=== PATIENT | female | born 1985 | race Caucasian/White ===

== ENCOUNTER → 2021-01-27 | Outpatient (REF) | payer BC | LOC: M SFHCWAGY 16:43 | PROVIDERS: ATTEND Advanced Practice Midwife | DX: Z36.89 Encounter for other specified antenatal screening (principal); Z3A.36 36 weeks gestation of pregnancy ==

== ENCOUNTER 2021-02-21 05:58 | Inpatient (IN) | payer BC ==
[~2021-02-21] VITALS: Ht 160 cm; Wt 74.8 kg
[2021-02-21] VITALS (40 sets, daily range): BP systolic 93–143; BP diastolic 53–95
[2021-02-21] MEDS ORDERED: PRENTAB9 PO (06:20)
[2021-02-21] MEDS ORDERED: TUMS500C PO (06:20)
[2021-02-21] MEDS ORDERED: HOME MED LIST COMPLETE! XX SCH (06:25)
[2021-02-21 07:08] LABS: HEMATOCRIT 39.6 % (36.0-47.0); HEMOGLOBIN 13.4 g/dl (12.0-15.5); MEAN CORPUSCULAR HEMOGLOBIN 28.5 pg (27.0-33.0); MEAN CORPUSCULAR HGB CONC 33.8 g/dl (32.0-36.5); MEAN CORPUSCULAR VOLUME 84.3 fl (80.0-96.0); PLATELET COUNT, AUTOMATED 197 10^3/uL (150-450); WHITE BLOOD COUNT 6.5 10^3/uL (4.0-10.0)
[2021-02-21] MEDS ORDERED: LACTATED RINGER'S 1000 ML IV STA (08:43)
[2021-02-21] MEDS ORDERED: CARBOPROST TROMETHAMINE 250 MCG/ML AMP IM PRN (08:45)
[2021-02-21] MEDS ORDERED: LIDOCAINE 1% MDV 20ML VIAL INFIL PRN (08:45)
[2021-02-21] MEDS ORDERED: METHYLERGONOVINE MALEATE 0.2 MG/ML VIAL (J2210) IM PRN (08:45)
[2021-02-21] MEDS ORDERED: OXYTOCIN DRIP 30 UNITS in IV 1 EA IV PRN (08:45)
[2021-02-21] MEDS ORDERED: TRANEXAMIC ACID INJection 1,000 MG in NS 100 ML IV PRN (08:45)
--- NOTE | 2021-02-21 09:00 | HPEPDOC ---
Obstetrical History & Physical General Date of Admission Feb 21, 2021 at 07:04 Primary Care Physician: ABIEL VALENTIN CNM History of Present Illness Hanh is a 36-year-old female who is a at 40.1 weeks gestation with an EVON of 02/20/21 based off of her LMP and consistent with her first trimester ultra sound. She initiated care in her first trimester of with [facility] and transferred care to [facility] in her third trimester of .Her has been complicated by advanced maternal age. She presents to labor and delivery with complaints of leaking of fluid at 0430 on 02/20/21. She reports active movements. She denies contractions or vaginal bleeding. Chief Complaint: Rupture of membranes Information Provided By: Patient Age: 36 : 1 Term: 0 Pre-term: 0 Abortions: 0 Livin Care Care: Good Care Dating Final EDC: Feb 20, 2021 Final EDC by: LMP EGA at Admission: 40.1 Antepartum Course Diagnos(e)s Advanced maternal age. Height (inches): 63 Pre- weight (lbs.): 142 Admission Weight (lbs.): 164 Change in Weight (lbs.): 22 Past Medical History [employer] History: No pertinent history Past Medical History Medical History Alergic rhinitis Surgical History: Appendectomy, Other (surgery on both legs) Family History Significant Family History: Other (Situs Inversus) Social History Social history speech therapist. Marital Status: Family situation: Spouse/partner home Psychosocial History: No pertinent psych hx * Smoker: non-smoker Alcohol: Denies Drugs: denies Abuse Violence Screening Have you been hit/kicked/slapp: No Have you been sexually assault: No Imunizations Tdap status: current Allergies Coded Allergies: No Known Allergies (Unverified , 02/21/21) Physical Examination Physical Examination GENERAL: Alert and oriented times three. ABDOMEN: Gravid and non-tender to touch. FETUS: Is vertex (VTX) by sterile vaginal examination (SVE), fetus is vertex (VTX) by Rohith. LUNGS: Regular rate without use of accessory muscles. EXTREMITIES: No edema. No clonus. . Vital Signs/I&O Vital Signs Date Time Temp Pulse Resp B/P (MAP) Pulse Ox O2 Delivery O2 Flow Rate FiO2 02/21/21 06:19 97.2 63 18 114/81 (92) Laboratory Data 24H LABS Laboratory Tests 2 02/21/21 06:31: Nucleated Red Blood Cells % (auto) 0.0 CBC/BMP Laboratory Tests 02/21/21 06:31 Pertinent Laboratoy Data Blood Type: A+ RBC Antibody Screen: Negative HIV: Negative Hepatitis B: Negative Hepatitis C: Negative Rapid Plasma Reagin: Nonreactive Rubella: Immune Varicella: Immune Chlamydia/Gonorrhea: Negative Group B Streptococcus: Negative Glucose Tolerance Test: 152 Diag/Inter Therapy Normal 3 hour GTT Low risk NIPT Vaginal Examination Dilation: 1cm Effacement: other (75%) Station: -2 Cervical Consistency: Medium Cervical Position: Middle Presentation: Cephalic presentation Assessment Heart Rate (FHR): 135 Variability: Moderate Accelerations: Positive Decelerations: None Tocometer Contractions: Yes Frequency: irregular Assessment/Plan Assessment IUP at 40.1 weeks gestation SROM meconium GBS negative Category I FHR tracing Plan Admit to labor and delivery. OOB ad parisa. Diet: regular. Group B Streptococcus (GBS) negative. Labs and intravenous (IV) per unit protocol. Counseled on Cytotec and IV Pitocin for induction of labor (IOL). Cytotec to be started. Anesthesia consult per patient's request. Lactated Ringers (LR): Bolus 800 mL prior to epidural, then at 125 mL/hr. Anticipate cervical ripening. C-S as appropriate. ABIEL VALENTIN CNM Feb 21, 2021 09:00
[2021-02-21] MEDS: miSOPROStol 50MCG 1/2 TABLET PO SCH ×2 (09:27→13:00)
[2021-02-21] MEDS ORDERED: FENTANYL 2MCG/ML ROPIVACAINE 0.2% IN 0.9% NACL 100ML IVBAG As Ordered ONE (12:42)
[2021-02-21] MEDS: LR 1,000 ML IV SCH ×2 (13:40→19:44)
[2021-02-21] MEDS ORDERED: OXYTOCIN DRIP 30 UNITS in IV 1 EA IV SCH (19:00)
--- NOTE | 2021-02-21 19:00 | IPNPDOC ---
Obstetrical Progress Note Date of Service Feb 21, 2021 Subjective Patient reports she is comfortable with her epidural. Objective Vital Signs Date Time Temp Pulse Resp B/P (MAP) Pulse Ox O2 Delivery O2 Flow Rate FiO2 02/21/21 18:21 70 16 109/57 (74) 02/21/21 06:19 97.2 Assessment Heart Rate (FHR): 130 Variability: Moderate Accelerations: Positive Decelerations: None Heart Rate Tracing: Category I Tocometer Contractions: Yes Frequency: regular, every 2-5 min. Sterile Vaginal Examination Dilation: 4 cm Effacement (%): 80% Station: -1 Cervical Consistency: Soft Cervical Position: Anterior Postion/Presentation: Cephalic presentation Assessment and Plan Age: 36 Status: Reassuring Group B Streptococcus: Negative Anticipate: Vaginal Delivery Additional Comments IV Pitocin to be started after counseling patient. ABIEL VALENTIN CNM Feb 21, 2021 19:00
[2021-02-21] MEDS ORDERED: ePHEDrine SULFATE 25 MG/5 ML(5MG/ML) SYRINGE IV PRN (19:15)
[2021-02-21] MEDS ORDERED: NALOXONE INJ 0.4MG/1ML VIAL (J2310 PER 1MG) IV PRN (19:15)
[2021-02-21] MEDS ORDERED: EPIDURAL COMMENT XX SCH (19:15)
[2021-02-21] MEDS ORDERED: EPIDURAL/PCA KEYS XX PRN (19:15)
[2021-02-21] MEDS ORDERED: ONDANSETRON 4MG/2ML VIAL IV PRN (19:15)
[2021-02-21] MEDS ORDERED: LACTATED RINGER'S 1000 ML IV PRN (19:15)
[2021-02-21] MEDS ORDERED: diphenhydrAMINE 50MG/ML VIAL (J1200) IV PRN (19:15)
[2021-02-21] MEDS ORDERED: REFRIGERATOR IV KEYS XX PRN (19:15)
[2021-02-21] MEDS: FENTANYL/ROPIVACAINE/NACL BAG 100 ML EPIDURAL SCH (20:21)
--- NOTE | 2021-02-21 23:45 | IPNPDOC ---
Obstetrical Progress Note Date of Service Feb 21, 2021 Subjective Patient uncomfortable in left upper quadrant. Not feeling pressure. Sitting up in bed. Has epidural. Objective Vital Signs Date Time Temp Pulse Resp B/P (MAP) Pulse Ox O2 Delivery O2 Flow Rate FiO2 02/21/21 21:46 97.4 57 119/72 (88) 02/21/21 19:44 17 Assessment Heart Rate (FHR): 140 Variability: Moderate Accelerations: Positive Decelerations: None Heart Rate Tracing: Category I Tocometer Contractions: Yes Frequency: every 1-3 min. Sterile Vaginal Examination Dilation: 5 cm Effacement (%): 80% Station: 0 Cervical Consistency: Soft Cervical Position: Anterior Postion/Presentation: Cephalic presentation Assessment and Plan Age: 36 : 1 Weeks & Days 40.1 Status: Reassuring Group B Streptococcus: Negative Anticipate: Vaginal Delivery Additional Comments IV Pitocin at 6 mu/min. Patient reclined on her back and she reports pain has improved with position change. Given epidural for bolus if needed. ABIEL VALENTIN CNM Feb 21, 2021 23:45
[2021-02-22] VITALS (33 sets, daily range): BP systolic 103–133; BP diastolic 54–88
[2021-02-22] MEDS ORDERED: METOCLOPRAMIDE INJ 10MG/2ML VIAL (J2765 PER 1) IV ONE (00:05)
[2021-02-22] MEDS: FENTANYL/ROPIVACAINE/NACL BAG 100 ML EPIDURAL SCH (02:46)
[2021-02-22] MEDS ORDERED: AZITHROMYCIN INJ 500 MG, VIAL MATE ADAPTER 1 EACH in NS 250 ML IV ONE (04:00)
[2021-02-22] MEDS ORDERED: ceFAZolin SOD 2 GM in IV 1 EA IV ONE (04:00)
[2021-02-22] MEDS ORDERED: BICITRA 30ML SOLN UDC PO ONE (04:00)
[2021-02-22] MEDS ORDERED: LR 1,000 ML IV SCH (04:00)
--- NOTE | 2021-02-22 04:01 | IPNPDOC ---
Obstetrical Progress Note Date of Service Feb 22, 2021 Subjective Patient reports feeling rectal pressure. Objective Vital Signs Date Time Temp Pulse Resp B/P (MAP) Pulse Ox O2 Delivery O2 Flow Rate FiO2 02/22/21 01:27 66 18 109/61 (77) 02/22/21 01:04 98.6 Assessment Heart Rate (FHR): 140 Variability: Moderate Accelerations: Positive Decelerations: None Heart Rate Tracing: Category I Tocometer Contractions: Yes Frequency: regular Sterile Vaginal Examination Dilation: 5 cm Effacement (%): 50% Station: 0 Cervical Consistency: Firm Postion/Presentation: Cephalic presentation Assessment and Plan Age: 36 : 1 Term: 0 Pre-term: 0 Abortions: 0 Livin EGA at Admission: 40.1 Weeks & Days 40.2 today Status: Reassuring Anticipate: Section Additional Comments cervix is very swollen. head lifted and a large amount of dark brown meconium was released from the uterus. Given that patient has not made any cervical change and her cervix is very swollen despite multiple hours of IV Pitocin and multiple position changes, I recommend a section. Dr. Haylee oro notified and will be in to evaluate patient. ABIEL VALENTIN CNM Feb 22, 2021 04:01
[2021-02-22] MEDS ORDERED: ONDANSETRON 4MG/2ML VIAL As Ordered ONE (04:58)
[2021-02-22] MEDS ORDERED: dexameTHASONE 4 MG/ML 1ML VIAL (J1100 PER 1MG) As Ordered ONE (04:58)
[2021-02-22] MEDS ORDERED: MORPHINE PRES-FREE INJ 10 MG/10 ML VIAL (J2274) As Ordered ONE (04:58)
[2021-02-22] MEDS ORDERED: SODIUM BICARBONATE 8.4% INJ 50MEQ 50 ML VIAL As Ordered ONE (04:58)
[2021-02-22] MEDS ORDERED: LIDOCAINE 2% W/EPINEPHRINE 20ML VIAL **PRES FREE As Ordered ONE (04:58)
[2021-02-22] MEDS ORDERED: KETOROLAC 60MG 2ML VIAL As Ordered ONE (04:58)
[2021-02-22] MEDS ORDERED: OXYTOCIN 30 UNITS IN 0.9% NaCl 500ML IV BAG (J2590) As Ordered ONE (04:58)
[2021-02-22] MEDS ORDERED: ACETAMINOPHEN 1000MG 100ML IV BTL (OFIRMEV) (J0131 PER 10MG) As Ordered ONE (04:59)
[2021-02-22] MEDS ORDERED: ONDANSETRON 4MG/2ML VIAL IV PRN ×2 (05:03→05:55)
[2021-02-22] MEDS ORDERED: METOCLOPRAMIDE INJ 10MG/2ML VIAL (J2765 PER 1) IV PRN (05:03)
[2021-02-22] MEDS ORDERED: NALOXONE INJ 0.4MG/1ML VIAL (J2310 PER 1MG) IV PRN ×2 (05:03)
[2021-02-22] MEDS ORDERED: NALBUPHINE HCL 10 MG/ML AMP (J2300) IV PRN (05:03)
[2021-02-22] MEDS ORDERED: diphenhydrAMINE 50MG/ML VIAL (J1200) IV PRN (05:03)
[2021-02-22 05:17] LABS: CORD GAS ABE A -8.4; CORD GAS ABE V -5.9; CORD GAS HCO3 A 18.6 MEQ/L; CORD GAS HCO3 V 20.2 MEQ/L; CORD GAS O2 SAT A 74.1 %; CORD GAS PCO2 A 43.3 mmHg; CORD GAS PCO2 V 41.8 mmHg; CORD GAS PH A 7.25 UNITS; CORD GAS PH V 7.301 UNITS; CORD GAS PO2 A 36.2 mmHg; CORD GAS PO2 V 38.9 mmHg; CORD GAS SBC A 17.3 MEQ/L; CORD GAS SBC V 19.2 MEQ/L; CORD GAS TCO2 A 19.9 MEQ/L; CORD GAS TCO2 V 21.4 MEQ/L
[2021-02-22] MEDS ORDERED: MEASLES,MUMPS,RUBELLA VACCINE INJ (MMR-II) (90707) SC SCH (05:35)
[2021-02-22] MEDS ORDERED: MOM 30ML SUSPENSION UDC PO PRN (05:35)
[2021-02-22] MEDS ORDERED: ONDANSETRON 4 MG TAB PO PRN (05:35)
[2021-02-22] MEDS ORDERED: RHOGAM 300 MCG (1500 IU) INJ (J2790) IM SCH (05:35)
[2021-02-22] MEDS ORDERED: OXYTOCIN DRIP 30 UNITS in IV 1 EA IV SCH (05:35)
[2021-02-22] MEDS ORDERED: PERCOCET 5MG/325MG TAB PO PRN ×2 (05:35)
[2021-02-22] MEDS ORDERED: SIMETHICONE 80MG CHEW TAB PO PRN (05:35)
[2021-02-22] MEDS ORDERED: fentaNYL 100 MCG/2 ML INJECTION (J3010) IV PRN (05:55)
[2021-02-22] MEDS ORDERED: oxyCODONE 5MG TAB PO PRN (05:55)
[2021-02-22] MEDS: PRENATAL VITAMINS CHEWABLE TABLET PO SCH (08:02)
[2021-02-22] MEDS: DOCUSATE SODIUM 100MG CAPSULE PO SCH ×2 (08:02→21:41)
--- NOTE | 2021-02-22 10:43 | RO ---
OPERATIVE NOTE DATE OF OPERATION: 02/22/2021 Hanh is a 36-year-old female, 1, para 0, who was admitted with spontaneous rupture of membranes, thick meconium. She had a failed induction. After counseling, a decision was made to proceed with a primary section. PREOPERATIVE DIAGNOSIS: 1. Term with thick meconium. 2. Failed induction. POSTOPERATIVE DIAGNOSIS: 1. Term with thick meconium. 2. Failed induction. PROCEDURE: Primary low transverse section via Pfannenstiel incision. SURGEON: Darshan Suárez DO CLINICAL ACCOUNT LIAISON: Emily Hunt CNM ANESTHESIA: Epidural COMPLICATIONS: None. ESTIMATED BLOOD LOSS: 500 mL FINDINGS: Male infant in occiput transverse position, 9-9, weight 8 lb, 7 oz, normal appearing tube and ovaries. DESCRIPTION OF PROCEDURE: After obtaining informed consent, the patient was taken to the operating room where epidural anesthetic was found to be adequate. She was then draped and prepped in the usual sterile fashion in a supine position. At this point, a Pfannenstiel incision was made with the help of Emily Hunt. The incision was carried down to the fascia. The fascia was incised in a midline fashion and carried through laterally. The superior aspect of the fascia was then grasped with a Ambreen clamp, tented off and dissected off the rectus muscles sharply. The inferior aspect was dissected off in a similar fashion. The rectus muscles were in midline fashion. The peritoneum was identified. The peritoneal cavity was entered bluntly. Superior and inferior dissection in the peritoneum was then done with good visualization of the bladder. At this point, a Mobius skin retractor was placed. A low transverse uterine incision was made. The was delivered in atraumatic fashion. The nose and mouth were bulb suctioned. The cord was doubly clamped and cut and the was handed over to awaiting warmer. Cord blood and cord gas were sent. The placenta was removed manually. The uterus was cleared of all clot and debris and the uterine incision was then repaired in two separate layers of 0 Vicryl sutures. All superficial bleeders were coagulated and the skin was then reapproximated in subcuticular fashion using 3-0 Vicryl on a Laron. Steri-Strips placed. The patient tolerated the procedure well. She was then transferred to recovery room in stable condition. [facility]
[2021-02-22] MEDS: IBUPROFEN 800 MG TAB PO SCH ×2 (14:16→21:42)
[2021-02-23 02:00] VITALS: BP 104/57
[2021-02-23] MEDS: IBUPROFEN 800 MG TAB PO SCH ×3 (05:43→21:26)
[2021-02-23 06:00] VITALS: BP 107/57
[2021-02-23] MEDS: PRENATAL VITAMINS CHEWABLE TABLET PO SCH (08:09)
[2021-02-23] MEDS: DOCUSATE SODIUM 100MG CAPSULE PO SCH ×2 (08:09→21:26)
[2021-02-23 08:37] LABS: HEMATOCRIT 29.8 % (36.0-47.0); HEMOGLOBIN 9.7 g/dl (12.0-15.5); MEAN CORPUSCULAR HGB CONC 32.6 g/dl (32.0-36.5); MEAN CORPUSCULAR VOLUME 85.9 fl (80.0-96.0); PLATELET COUNT, AUTOMATED 185 10^3/uL (150-450); RED BLOOD COUNT 3.47 10^6/uL (4.00-5.40); WHITE BLOOD COUNT 15.4 10^3/uL (4.0-10.0)
[2021-02-23 10:00] VITALS: BP 118/64
[2021-02-23] MEDS ORDERED: diphenhydrAMINE 50MG CAP PO ONE (11:10)
[2021-02-23 14:00] VITALS: BP 108/56
[2021-02-23 18:26] VITALS: BP 110/65
[2021-02-23 22:00] VITALS: BP 113/63
[2021-02-24 02:00] VITALS: BP 111/67
[2021-02-24] MEDS: IBUPROFEN 800 MG TAB PO SCH (05:47)
[2021-02-24 06:00] VITALS: BP 135/71
[2021-02-24] MEDS: PRENATAL VITAMINS CHEWABLE TABLET PO SCH (08:14)
[2021-02-24] MEDS: DOCUSATE SODIUM 100MG CAPSULE PO SCH (08:14)
[2021-02-24] MEDS ORDERED: IBUP80TA PO (10:05)
[2021-02-24] MEDS ORDERED: PERCOCET PO (10:05)
[2021-02-24] MEDS ORDERED: PRENCHW PO (10:05)
[2021-02-24] MEDS ORDERED: COLA100C5 PO (10:05)
[2021-02-24 10:13] VITALS: BP 118/64
--- NOTE | 2021-02-24 10:43 | OBDS ---
[facility] Obstetrical Discharge Sum. Obstetrical Discharge Summary Date: Feb 24, 2021 : 1 Term: 1 Rh: Positive Rubella: Immune Anesthesia: Regional Anesthesia A/P, Post Course List any complications Admission diagnosis: Rupture of membranes Discharge diagnosis: post Condition at Discharge: stable Discharge Instructions: home Activity: as tolerated, nothing in vagina for 6 weeks Diet: regular Medications: see med rec Follow-up: two week incision check BI LAGUERRE MD Feb 24, 2021 10:43
== END 2021-02-24 11:40 | disposition home or self-care (01) | DRG 540 ==
LOC: M LDO 05:58 → M LDI 07:04 → M OBS 02-22 06:50
PROVIDERS: ADMIT Obstetrics & Gynecology; ATTEND Obstetrics & Gynecology
PROC: 3E0P7GC Introduction of Other Therapeutic Substance into Female Reproductive, Via Natural or Artificial Opening (ICD-10-PCS; 2021-02-21)
PROC: 10D00Z1 Extraction of Products of Conception, Low, Open Approach (ICD-10-PCS; principal; 2021-02-22 05:21)
DX: O77.0 Labor and delivery complicated by meconium in amniotic fluid (principal); O61.0 Failed medical induction of labor; Z37.0 Single live birth; Z3A.40 40 weeks gestation of pregnancy

== ENCOUNTER → 2022-03-15 | Outpatient (REF) | payer BC ==
[~2022-03-15] MED LIST: COLA100C5 PO; IBUP80TA PO; PERCOCET PO; PRENCHW PO; PRENTAB9 PO; TUMS500C PO
== END ==
LOC: M PLALAB 14:59
PROVIDERS: ATTEND Advanced Practice Midwife
DX: Z12.4 Encounter for screening for malignant neoplasm of cervix (principal)

== ENCOUNTER → 2022-07-28 | Outpatient (CLI) | payer BC | LOC: M WHC 13:01 | PROVIDERS: ATTEND Specialist | DX: Z34.82 Encounter for supervision of other normal pregnancy, second trimester (principal) ==

== ENCOUNTER → 2022-11-03 | Outpatient (REF) | payer BC | LOC: M PLALAB 10:30 | PROVIDERS: ATTEND Obstetrics & Gynecology | DX: Z34.80 Encounter for supervision of other normal pregnancy, unspecified trimester (principal) ==

== ENCOUNTER → 2023-07-12 | Outpatient (REF) | payer BC | LOC: M SFHCWAGY 13:34 | PROVIDERS: ATTEND Advanced Practice Midwife | DX: Z12.4 Encounter for screening for malignant neoplasm of cervix (principal); Z01.419 Encounter for gynecological examination (general) (routine) without abnormal findings; Z77.9 Other contact with and (suspected) exposures hazardous to health ==

== ENCOUNTER → 2024-07-17 | Outpatient (REF) | payer BC | LOC: M SFHCWAGY 13:00 | PROVIDERS: ATTEND Advanced Practice Midwife | DX: Z12.4 Encounter for screening for malignant neoplasm of cervix (principal) ==